=== PATIENT | female | born 1985 | race African-American/Black ===

== ENCOUNTER 2024-09-19 13:57 | Inpatient (IN) | payer OTHER ==
[~2024-09-19] VITALS: Ht 160 cm; Wt 61.2 kg
[2024-09-19] VITALS (25 sets, daily range): BP systolic 81–117; BP diastolic 46–70; PULSE 89–108; RESP 10–20; TEMP 98.2–98.8; O2SAT 98–100
[2024-09-19] MEDS ORDERED: MAGNESIUM SULF 1GRAM/DEXTROSE 100 ML IV PRN (15:30)
[2024-09-19] MEDS ORDERED: LABETALOL HCL 5 MG/ML 20ML VIAL IV PRN (15:30)
[2024-09-19] MEDS: SODIUM CHLORIDE 0.9% 1000ML 1,000 ML IV ONE (15:41)
[2024-09-19] MEDS ORDERED: HYDRALAZINE HCL 20 MG/ML VIAL IV PRN (15:45)
[2024-09-19 16:03] LABS: BASOPHILS % 0.2 % (0.0-1.0); HEMATOCRIT 29.2 % (34.2-44.1); HEMOGLOBIN 9.8 g/dL (12.0-16.0); LYMPHOCYTES # (AUTO) 1.2 (1.0-3.2); LYMPHOCYTES % 11.8 % (18.0-39.1); MEAN CORPUSCULAR HEMOGLOBIN 30.2 pg (28-32); MEAN CORPUSCULAR HGB CONC 33.6 g/dL (31-35); MEAN CORPUSCULAR VOLUME 89.8 fL (81-99); MONOCYTES # (AUTO) 0.5 (0.2-0.8); MONOCYTES % 4.5 % (4.4-11.3); NEUTROPHILS # (AUTO) 8.6 (2.1-6.9); NEUTROPHILS % 83.2 % (38.7-80.0); PLATELET COUNT 304 x10e3/uL (140-360); RED BLOOD COUNT 3.25 x10e6/uL (3.6-5.1); WHITE BLOOD COUNT 10.32 x10e3/uL (4.8-10.8)
[2024-09-19 16:18] LABS: ALBUMIN 3.8 g/dL (3.5-5.0); ALBUMIN/GLOBULIN RATIO 1.2 (0.8-2.0); ANION GAP 26.9 mmol/L (8-16); BILIRUBIN,TOTAL 1.2 mg/dL (0.2-1.2); CALCIUM 8.6 mg/dL (8.4-10.2); CREATININE, SERUM 1.88 mg/dL (0.57-1.11); POTASSIUM 3.9 mmol/L (3.5-5.1)
[2024-09-19] MEDS ORDERED: HUMALOG MI100 UNIT/2 SQ (16:58)
[2024-09-19] MEDS ORDERED: MIRTAZAPINE15 MG PO (16:58)
[2024-09-19] MEDS ORDERED: AMITRIPTYLINE H25 MG PO (16:58)
[2024-09-19] MEDS ORDERED: LANTUS 3ML100 UNITS/ SC ×2 (16:58)
[2024-09-19] MEDS: INSULIN REGULAR, HUMAN 3ML VL 100 UNIT in SODIUM CHLORIDE 0.9% 99 ML IV SCH (17:11)
[2024-09-19] MEDS: HYDROMORPHONE 1MG/1ML INJ IV PRN (18:18)
[2024-09-19] MEDS: ONDANSETRON HCL INJ 2MG/ML 2ML 2 MG/ML VIAL IV PRN (18:30)
[2024-09-19] MEDS: DEXTROSE 5%/0.45% SOD CHL 1,000 ML IV SCH (20:20)
[2024-09-19] MEDS ORDERED: ACETAMINOPHEN 325 MG TAB PO PRN (22:00)
[2024-09-19] MEDS ORDERED: POLYETHYLENE GLYCOL 3350 17 GM PACK PO PRN (22:00)
[2024-09-19] MEDS: ZOLPIDEM TARTRATE 5 MG TAB PO PRN (23:07)
[2024-09-19 23:53] LABS: ANION GAP 17.3 mmol/L (8-16); CALCIUM 8.4 mg/dL (8.4-10.2); CREATININE, SERUM 1.43 mg/dL (0.57-1.11); MAGNESIUM 1.8 MG/DL (1.3-2.1)
[2024-09-19 23:58] LABS: POTASSIUM 3.3 mmol/L (3.5-5.1)
[2024-09-20] VITALS (44 sets, daily range): BP systolic 61–139; BP diastolic 56–96; PULSE 85–114; RESP 7–21; TEMP 97.6–98.8; O2SAT 97–100
[2024-09-20] MEDS: POTASSIUM CHLORIDE 20MEQ/100ML 200 ML IV PRN (00:34)
[2024-09-20] MEDS: DEXTROSE 50% SYRINGE 50 ML IV PRN (07:05)
[2024-09-20 07:27] LABS: BASOPHILS % 0.3 % (0.0-1.0); EOSINOPHILS # (AUTO) 0.1 (0.0-0.4); EOSINOPHILS % 0.7 % (0.0-6.0); HEMATOCRIT 26.2 % (34.2-44.1); HEMOGLOBIN 8.6 g/dL (12.0-16.0); LYMPHOCYTES # (AUTO) 3.1 (1.0-3.2); LYMPHOCYTES % 28.7 % (18.0-39.1); MEAN CORPUSCULAR HEMOGLOBIN 29.8 pg (28-32); MEAN CORPUSCULAR HGB CONC 32.8 g/dL (31-35); MEAN CORPUSCULAR VOLUME 90.7 fL (81-99); MONOCYTES # (AUTO) 0.9 (0.2-0.8); MONOCYTES % 8.2 % (4.4-11.3); NEUTROPHILS # (AUTO) 6.7 (2.1-6.9); NEUTROPHILS % 61.7 % (38.7-80.0); PLATELET COUNT 227 x10e3/uL (140-360); RED BLOOD COUNT 2.89 x10e6/uL (3.6-5.1); RED CELL DISTRIBUTION WIDTH 13.2 % (11.7-14.4); WHITE BLOOD COUNT 10.87 x10e3/uL (4.8-10.8)
[2024-09-20] MEDS: DEXTROSE 50% SYRINGE 50 ML IV ONE (07:31)
[2024-09-20 08:07] LABS: CHOL/HDL RATIO 3.7 (3.0-3.6)
[2024-09-20 08:44] LABS: ANION GAP 11.3 mmol/L (8-16); CALCIUM 7.6 mg/dL (8.4-10.2); CREATININE, SERUM 1.05 mg/dL (0.57-1.11)
[2024-09-20 08:45] LABS: POTASSIUM 3.3 mmol/L (3.5-5.1)
[2024-09-20] MEDS ORDERED: DEXTROSE 50% SYRINGE 50 ML IV PRN (09:00)
[2024-09-20 09:22] LABS: FERRITIN 23.54 ng/mL (4.63-204.00)
[2024-09-20 09:35] LABS: FOLATE 7.9 ng/mL (7.0-15.4)
[2024-09-20 10:23] LABS: THYROID STIMULATING HORMONE 1.254 uIU/mL (0.350-4.940)
[2024-09-20] MEDS: INSULIN LISPRO 100 UNIT/1 ML 3ML VIAL SQ SCH (11:30)
[2024-09-20 19:20] LABS: ANION GAP 16.4 mmol/L (8-16); CALCIUM 8.6 mg/dL (8.4-10.2); CREATININE, SERUM 0.99 mg/dL (0.57-1.11)
[2024-09-20 19:22] LABS: POTASSIUM 4.4 mmol/L (3.5-5.1)
[2024-09-20] MEDS: INSULIN GLARGINE 100 UNITS/ML VIAL SQ SCH (21:23)
[2024-09-21] VITALS (12 sets, daily range): BP systolic 98–133; BP diastolic 61–90; PULSE 81–107; RESP 10–23; TEMP 98.5–98.6; O2SAT 99–100
[2024-09-21 06:08] LABS: BASOPHILS % 0.5 % (0.0-1.0); EOSINOPHILS # (AUTO) 0.2 (0.0-0.4); EOSINOPHILS % 2.4 % (0.0-6.0); HEMATOCRIT 31.9 % (34.2-44.1); HEMOGLOBIN 10.4 g/dL (12.0-16.0); LYMPHOCYTES # (AUTO) 3.4 (1.0-3.2); LYMPHOCYTES % 45.3 % (18.0-39.1); MEAN CORPUSCULAR HEMOGLOBIN 29.5 pg (28-32); MEAN CORPUSCULAR HGB CONC 32.6 g/dL (31-35); MEAN CORPUSCULAR VOLUME 90.4 fL (81-99); MONOCYTES # (AUTO) 0.4 (0.2-0.8); MONOCYTES % 5.4 % (4.4-11.3); NEUTROPHILS # (AUTO) 3.5 (2.1-6.9); NEUTROPHILS % 46.1 % (38.7-80.0); PLATELET COUNT 296 x10e3/uL (140-360); RED BLOOD COUNT 3.53 x10e6/uL (3.6-5.1); RED CELL DISTRIBUTION WIDTH 13.1 % (11.7-14.4); WHITE BLOOD COUNT 7.53 x10e3/uL (4.8-10.8)
[2024-09-21 06:32] LABS: ANION GAP 16.2 mmol/L (8-16); CALCIUM 8.8 mg/dL (8.4-10.2); CREATININE, SERUM 0.97 mg/dL (0.57-1.11); POTASSIUM 4.2 mmol/L (3.5-5.1)
[2024-09-21] MEDS ORDERED: PROMETHAZINE HC25 M1 PO (12:35)
[2024-09-21] MEDS ORDERED: HUMALOG MI100 UNIT/2 SQ (12:35)
[2024-09-21] MEDS ORDERED: PANTOPRAZOLE SO40 MG PO (12:35)
== END 2024-09-21 13:10 | disposition home or self-care (01) | DRG 638 ==
LOC: ICU 15:09
PROVIDERS: ADMIT Internal Medicine; ATTEND Internal Medicine
DX: E10.10 Type 1 diabetes mellitus with ketoacidosis without coma (principal); N17.9 Acute kidney failure, unspecified; E86.0 Dehydration; R11.2 Nausea with vomiting, unspecified; I95.9 Hypotension, unspecified; D64.9 Anemia, unspecified; R00.0 Tachycardia, unspecified; Z79.4 Long term (current) use of insulin; Z53.8 Procedure and treatment not carried out for other reasons; E78.2 Mixed hyperlipidemia; F33.41 Major depressive disorder, recurrent, in partial remission; F41.1 Generalized anxiety disorder; Z87.891 Personal history of nicotine dependence; Z79.899 Other long term (current) drug therapy
CPT/HCPCS: 36415; 71045; 76700; 80048; 80053; 80061; 82607; 82728; 82746; 82948; 83036; 83540; 83690; 83735; 84443; 84466; 84702; 85025; 87040; 99252; J0696; J1171; J1815; J2405; J2470; J3480; J7030; J7050; J7799